=== PATIENT | female | born 1970 | race Caucasian/White ===

== ENCOUNTER 2017-12-07 08:26 | Emergency (ER) | payer OTHER ==
[~2017-12-07] VITALS: Ht 162.6 cm; Wt 79.4 kg
[2017-12-07 08:38] VITALS: BP 143/85
== END 2017-12-07 10:12 | disposition home or self-care (01) ==
LOC: ER 08:30
DX: J06.9 Acute upper respiratory infection, unspecified (principal)
CPT/HCPCS: 71045-TC; A4606; Z7610